=== PATIENT | male | born 1955 | race Caucasian/White ===

== ENCOUNTER 2019-06-30 00:39 | Emergency (ER) | payer MEDICARE, OTHER ==
[2019-06-30] MEDS ORDERED: Thiamine 100 MG in Sodium Chloride 0.9% 100 ML IV ONE (01:07)
--- NOTE | 2019-06-30 01:13 | EDM.PDOC ---
ED HPI GENERAL MEDICAL PROBLEM - General Chief Complaint: Trauma Stated Complaint: tachycardia, R knee injury Time Seen by Provider: 06/30/19 01:00 Source of Information: Reports: Patient, EMS, Old Records History Limitations: Reports: Intoxication - History of Present Illness INITIAL COMMENTS - FREE TEXT/NARRATIVE: Arnaldo comes into [facility] ED by EMS following a fall in his apartment at approximately 9 pm. He was turning and lost his balance. There is pain at and just behind the R knee. He was unable to stand, and crawled to a phone to summon help. There was no reported LOC. Upon arrival in the ED, his monitor noted sinus tachycardia with VR [id number], BP 131/89, afebrile. He was alert, orientated and cooperative. He did not smell of ETOH, last reported beer shortly before 9 pm. He appears jaundiced. He is unclear about meds, and could not recall his PCP. He is a poor historian. R knee Pain Score (Numeric/FACES): 7 - Related Data Allergies Allergy/AdvReac Type Severity Reaction Status Date / Time No Known Allergies Allergy Verified 06/30/19 01:04 Past Medical History HEENT History: Reports: Allergic Rhinitis Respiratory History: Reports: Asthma - Past Surgical History Musculoskeletal Surgical History: Reports: Carpal Tunnel, ORIF (R and L hips) Review of Systems - Review of Systems Review Of Systems: See Below Constitutional: Reports: Weakness Eyes: Reports: Pain (R knee and lower leg) Ears: Reports: No Symptoms Nose: Reports: No Symptoms Mouth/Throat: Reports: Loose Teeth Respiratory: Reports: No Symptoms Cardiovascular: Reports: Irregular Heart Rate GI/Abdominal: Reports: No Symptoms Genitourinary: Reports: No Symptoms Musculoskeletal: Reports: Leg Pain (right) Skin: Reports: Wound (L knee, chronic) Neurological: Reports: Difficulty Walking, Weakness Psychiatric: Reports: No Symptoms ED EXAM, GENERAL - Physical Exam Exam: See Below Exam Limited By: Other (poor body habitus) General Appearance: Alert, WD/WN, Moderate Distress, Thin Eye Exam: Bilateral Eye: EOMI, PERRL, Other (icterus) Ears: Normal External Exam Nose: Normal Inspection Throat/Mouth: No Airway Compromise, Other (poor dentition) Head: Atraumatic, Normocephalic Neck: Normal Inspection, Supple, Non-Tender Respiratory/Chest: No Respiratory Distress, No Accessory Muscle Use, Decreased Breath Sounds Cardiovascular: No Gallop, No JVD, Tachycardia, Other (dependent edema bilaterally) GI/Abdominal: Normal Bowel Sounds, Soft, Non-Tender, No Organomegaly, No Distention, No Mass (Male) Exam: Deferred Rectal (Males) Exam: Deferred Back Exam: Normal Inspection Extremities: Limited Range of Motion (R knee and R lower leg; chronic edema of both legs) Neurological: Alert, Oriented, CN II-XII Intact, Other (some tremors) Psychiatric: Flat Affect, Other (mood neutral) Skin Exam: Wound/Incision (3 cm open wound overlying L knee) Lymphatic: No Adenopathy Course - Vital Signs Text/Narrative:: Following assessment, screening labs were drawn, IV NS continued for rehydration , and Thiamine 100 mg IV administered. A bladder scan noted 150 ml urine. The chest x ray noted chronic changes suggesting COPD. The EKG noted sinus tachycardia with ectopic atrial beats. The CBC was baseline with macrocytosis, plts 95,000. There were elevated LFTs. X rays of the hips noted prior ORIF bilaterally. Bones were generally osteoporotic. The R knee appears to have a distal condylar fracture. The lower leg did not demonstrate any fractures. Case was discussed with Dr Evie Blount at [facility] ED, and he will be transferred for orthopedic consultation. Last Recorded V/S: Last Vital Signs Temp 36.6 C 06/30/19 00:39 Pulse 157 H 06/30/19 00:39 Resp 20 06/30/19 00:39 BP 131/89 06/30/19 00:39 Pulse Ox 93 L 06/30/19 00:39 - Orders/Labs/Meds Orders: Active Orders 24 hr Category Date Time Status EKG Documentation Completion [RC] ASDIRECTED Care 06/30/19 01:06 Active Insert Trammell Catheter [Insert Urinary Catheter] [OM.PC] Care 06/30/19 03:30 Ordered Q24H Urinary Catheter Assessment [RC] QSHIFT Care 06/30/19 03:21 Active Chest 1V Frontal [CR] Stat Exams 06/30/19 01:03 Taken Femur Min 2V Rt [CR] Stat Exams 06/30/19 01:03 Taken Hip Min 2V w Pelvis Bi [CR] Stat Exams 06/30/19 01:03 Taken Knee 3V Rt [CR] Stat Exams 06/30/19 01:03 Taken Tibia Fibula Rt [CR] Stat Exams 06/30/19 01:03 Taken DRUG SCREEN, URINE ALERE [URCHEM] Stat Lab 06/30/19 01:03 Ordered UA W/MICROSCOPIC [URIN] Stat Lab 06/30/19 01:03 Ordered Dextrose 5%-Lactated Ringers 1,000 ml Med 06/30/19 03:30 Active IV ASDIRECTED Sodium Chloride 0.9% [Normal Saline] 1,000 ml Med 06/30/19 03:23 Active IV .BOLUS EKG 12 Lead [EK] Routine Ther 06/30/19 01:03 Ordered Medication Orders Dextrose/Lactated Ringer's (Dextrose 5%-Lactated Ringers) 1,000 mls @ 250 mls/ hr IV ASDIRECTED SHANNON Sodium Chloride (Normal Saline) 1,000 mls @ 999 mls/hr IV .BOLUS ONE Stop: 06/30/19 04:23 Labs: Laboratory Tests 06/30/19 06/30/19 06/30/19 Range/Units 00:58 00:58 00:58 WBC 5.6 (4.5-12.0) X10-3/uL RBC 3.37 L (4.30-5.75) x10(6)uL Hgb 12.7 L (13.5-17.8) g/dL Hct 37.5 (30.0-51.3) % MCV 111.5 H (80-96) fL MCH 37.6 H (27.7-33.6) pg MCHC 33.7 (32.2-35.4) g/dL RDW 17.1 H (11.5-15.5) % Plt Count 98 L (125-369) X10(3)uL MPV 8.4 (7.4-10.4) fL Neut % (Auto) 63.3 (46-82) % Lymph % (Auto) 25.4 (13-37) % Cobb % (Auto) 9.5 (4-12) % Eos % (Auto) 1 (1.0-5.0) % Baso % (Auto) 1 (0-2) % Neut # (Auto) 3.6 (1.6-8.3) # Lymph # (Auto) 1.4 (0.6-5.0) # Cobb # (Auto) 0.5 (0.0-1.3) # Eos # (Auto) 0.1 (0.0-0.8) # Baso # (Auto) 0.0 (0.0-0.2) # Sodium 133 L (135-145) mmol/L Potassium 3.4 L (3.5-5.3) mmol/L Chloride 98 L (100-110) mmol/L Carbon Dioxide 26 (21-32) mmol/L BUN 13 (7-18) mg/dL Creatinine 1.1 (0.70-1.30) mg/dL Est Cr Clr Drug Dosing TNP Estimated GFR (MDRD) > 60 (>60) BUN/Creatinine Ratio 11.8 (9-20) Glucose 126 H (80-116) mg/dL Calcium 8.1 L (8.6-10.2) mg/dL Total Bilirubin 4.8 H (0.1-1.3) mg/dL AST 90 H (5-25) IU/L ALT 51 H (12-36) U/L Alkaline Phosphatase 235 H (56-112) IU/L Troponin I 0.107 H* (<0.017-0.056) ng/mL Total Protein 7.4 (6.0-8.0) g/dL Albumin 1.8 L (3.2-4.6) g/dL Globulin 5.6 g/dL Albumin/Globulin Ratio 0.3 Ethyl Alcohol 0.05 H (<0.03) % Meds: Medications Generic Name Dose Route Start Last Admin Trade Name Freq PRN Reason Stop Dose Admin Dextrose/Lactated Ringer's 1,000 mls @ 250 mls/hr 06/30/19 03:30 Dextrose 5%-Lactated Ringers IV ASDIRECTED SHANNON Sodium Chloride 1,000 mls @ 999 mls/hr 06/30/19 03:23 Normal Saline IV 06/30/19 04:23 .BOLUS ONE Discontinued Medications Generic Name Dose Route Start Last Admin Trade Name Freq PRN Reason Stop Dose Admin Fentanyl 100 mcg 06/30/19 02:36 06/30/19 02:57 Sublimaze IVPUSH 06/30/19 02:37 100 mcg ONETIME ONE Administration Sodium Chloride 1,000 mls @ 999 mls/hr 06/30/19 01:15 Normal Saline IV 07/01/19 02:16 ASDIRECTED [facility] Thiamine HCl 100 mg/ Sodium 101 mls @ 202 mls/hr 06/30/19 01:07 06/30/19 01: 27 Chloride IV 06/30/19 01:08 202 mls/hr ONETIME ONE Administration Departure - Departure Time of Disposition: 03:26 Disposition: DC/Tfer to Other 70 Condition: Fair Clinical Impression: Intercondylar fracture of femur - Discharge Information *PRESCRIPTION DRUG MONITORING PROGRAM REVIEWED*: Not Applicable *COPY OF PRESCRIPTION DRUG MONITORING REPORT IN PATIENT NIKOLAS: Not Applicable Forms: ED Department Discharge - Problem List & Annotations (1) Intercondylar fracture of femur SNOMED Code(s): 15784493 Code(s): S72.413A - DISPLACED UNSP CONDYLE FX LOWER END OF UNSP FEMUR, INIT Status: Acute Current Visit: Yes Annotation/Comment:: Transfer to [facility] for orthopedic consultation and managment. - Problem List Review Problem List Initiated/Reviewed/Updated: Yes - My Orders Last 24 Hours: My Active Orders 06/30/19 01:03 Chest 1V Frontal [CR] Stat Femur Min 2V Rt [CR] Stat Hip Min 2V w Pelvis Bi [CR] Stat Knee 3V Rt [CR] Stat Tibia Fibula Rt [CR] Stat DRUG SCREEN, URINE ALERE [URCHEM] Stat UA W/MICROSCOPIC [URIN] Stat EKG 12 Lead [EK] Routine 06/30/19 01:06 EKG Documentation Completion [RC] ASDIRECTED 06/30/19 03:21 Urinary Catheter Assessment [RC] QSHIFT 06/30/19 03:23 Sodium Chloride 0.9% [Normal Saline] 1,000 ml IV .BOLUS 06/30/19 03:30 Insert Trammell Catheter [Insert Urinary Catheter] [OM.PC] Q24H Dextrose 5%-Lactated Ringers 1,000 ml IV ASDIRECTED - Assessment/Plan Last 24 Hours: My Active Orders 06/30/19 01:03 Chest 1V Frontal [CR] Stat Femur Min 2V Rt [CR] Stat Hip Min 2V w Pelvis Bi [CR] Stat Knee 3V Rt [CR] Stat Tibia Fibula Rt [CR] Stat DRUG SCREEN, URINE ALERE [URCHEM] Stat UA W/MICROSCOPIC [URIN] Stat EKG 12 Lead [EK] Routine 06/30/19 01:06 EKG Documentation Completion [RC] ASDIRECTED 06/30/19 03:21 Urinary Catheter Assessment [RC] QSHIFT 06/30/19 03:23 Sodium Chloride 0.9% [Normal Saline] 1,000 ml IV .BOLUS 06/30/19 03:30 Insert Trammell Catheter [Insert Urinary Catheter] [OM.PC] Q24H Dextrose 5%-Lactated Ringers 1,000 ml IV ASDIRECTED Plan: Follow up with PCP.
[2019-06-30] MEDS ORDERED: Sodium Chloride 0.9% 1,000 ML IV SCH (01:15)
[2019-06-30] MEDS ORDERED: fentaNYL 100 MCG/2 ML SDV IVPUSH ONE (02:36)
[2019-06-30] MEDS ORDERED: Sodium Chloride 0.9% 1,000 ML IV ONE (03:23)
[2019-06-30] MEDS ORDERED: Dextrose 5%-Lactated Ringers 1,000 ML IV SCH (03:30)
--- NOTE | 2019-06-30 10:47 | CR ---
INDICATION: Fall. BILATERAL HIPS WITH PELVIS: A frontal view of the pelvis with frontal and lateral views of both hips with a total of 7 images were obtained, 06/30/19, and compared with 06/04/18 and 03/15/15. Bilateral hip pinnings are noted and appear intact with no change in position or alignment of the femoral fracture fragments. The metallic components appear intact. On the left, an intramedullary christiano is noted, extending through the left femur. A new acute fracture or dislocation was not suggested. The hip joints appear to be fairly intact. Sacroiliac joints were intact. An appearance of demineralization raises question of osteoporosis but should be correlated clinically. IMPRESSION: No acute fracture or dislocation pelvis and hips. MTDD
--- NOTE | 2019-06-30 10:53 | CR ---
INDICATION: Fall. CHEST: Two AP supine views of the chest were obtained, 06/30/19, and were compared with 05/31/16. The heart does not appear enlarged, allowing for the AP supine positioning. There is thickening of the pleural space at the lower lung field on the left and blunting of the left costophrenic angle. Probable old healed fractures of the ribs are noted on the left. The thickening may be on the basis of pleural scarring from previous injury but should be correlated clinically. An upright view may be helpful. Other than a possible pleural effusion on the left, no definite acute process was seen. Calcifications are noted in the arch of the aorta. Overlying EKG leads are noted. IMPRESSION: Pleural effusion likely on the left could be at least partly due to pleural fibrosis but should be correlated clinically. Cannot entirely exclude an acute rib fracture, although old rib fractures are noted on the left. These appear to be healed at the 4th through 9th left ribs posterolaterally and laterally. Upright PA chest may be helpful for further evaluation. MTDD
--- NOTE | 2019-06-30 10:59 | CR ---
INDICATION: Fall, pain below right knee. RIGHT KNEE: Three views of the right knee were obtained, 06/30/19, and compared with 04/28/15. There is now noted a comminuted fracture of the distal metaphysis of the femur with fracture lines extending into the lateral joint surface with some cranial shift of a medial fracture fragment and with extension through the intercondylar notch area with inferior offset of the lateral intercondylar notch fracture fragment. Somewhat demineralized appearance raises question of osteoporosis - correlate clinically. There is mild medial offset of the distal medial fracture fragment. IMPRESSION: Comminuted fracture of the distal femoral metaphysis. MTDD
--- NOTE | 2019-06-30 11:01 | CR ---
INDICATION: Fall. RIGHT FEMUR: Frontal and lateral views of the right femur revealed comminuted fracture of the distal femur described on right knee x-ray. Somewhat demineralized appearance is noted, suggesting the possibility of osteoporosis or osteomalacia - correlate clinically. MTDD
--- NOTE | 2019-06-30 11:04 | CR ---
INDICATION: Fall. RIGHT TIBIA/FIBULA: Three images of the right tibia and fibula were obtained in frontal and lateral projections and revealed overall demineralization, raising question of osteomalacia or osteoporosis - correlate clinically. A definite fracture or dislocation of the tibia or fibula was not identified. MTDD
== END 2019-06-30 04:42 | disposition other institution (70) ==
LOC: FB.ED 00:39
DX: S72.411A Displaced unspecified condyle fracture of lower end of right femur, initial encounter for closed fracture (principal); W19.XXXA Unspecified fall, initial encounter
CPT/HCPCS: 36415; 51702; 51798; 71045; 73521; 73552; 73562; 73590; 80053; 80305; 81001; 84484; 85025; 93005; 96361; 96365; 96375; 99285; G0480; J3010; J3411; J7030; J7042